=== PATIENT | male | born 1930 | race Caucasian/White ===

== ENCOUNTER 2017-01-01 07:33 | Observation (INO) | payer MEDICARE, OTHER ==
[~2017-01-01 07:33] MED LIST: Ciprofloxacin in D5W 400 MG in Premix Bag 1 BAG IV ONE
[2017-01-01] MEDS: Lactated Ringers 1,000 ML IV SCH (08:05)
[2017-01-01] MEDS ORDERED: Propofol 200 MG/20 ML SDV ONE ×2 (08:41→09:20)
[2017-01-01] MEDS ORDERED: Lidocaine 2% 5 ML SDV ONE ×2 (08:41→09:20)
[2017-01-01] MEDS ORDERED: Midazolam 1 MG/ML 2 ML SDV ONE (09:20)
[2017-01-01] MEDS ORDERED: fentaNYL 100 MCG/2 ML SDV ONE (09:20)
[2017-01-01] MEDS ORDERED: Ondansetron 4 MG/2 ML SDV ONE (09:24)
--- NOTE | 2017-01-01 09:42 | PCM.PREANE ---
Preanesthetic Assessment - Procedure Proposed Procedure: TURBT - Anesthesia/Transfusion/Family Hx Anesthesia History: Prior Anesthesia Without Reaction Family History of Anesthesia Reaction: No Transfusion History: No Prior Transfusion(s) Intubation History: Unknown - Review of Systems General: No Symptoms Pulmonary: No Symptoms Cardiovascular: Other (HTN, hypercholesterolemia, Pacemaker for slow heart rate) Gastrointestinal: Other (GERD) Neurological: Other (hearing loss) Other: Reports: Thyroid Problems (hypothyroid - treated) - Physical Assessment NPO Status Date: 12/31/16 NPO Status Time: 21:00 O2 Sat by Pulse Oximetry: 96 Respiratory Rate: 16 Vital Signs: Last Vital Signs Temp 97.2 F 01/01/17 08:34 Pulse 92 01/01/17 08:34 Resp 16 01/01/17 08:34 BP 111/50 L 01/01/17 08:34 Pulse Ox 96 01/01/17 08:34 Height: 5 ft 10 in Weight: 178 lb ASA Class: 3 Mental Status: Alert & Oriented x3 Airway Class: Mallampati = 3 Dentition: Reports: Missing Tooth/Teeth Thyro-Mental Finger Breadths: 3 Mouth Opening Finger Breadths: 3 (small mouth) ROM/Head Extension: Limited/Partial Lungs: Clear to Auscultation, Normal Respiratory Effort Cardiovascular: Regular Rate, Regular Rhythm, No Murmurs - Allergies Allergies/Adverse Reactions: Allergies Allergy/AdvReac Type Severity Reaction Status Date / Time cephalexin [From Keflex] Allergy Shortness Verified 12/28/16 13:18 of Breath - Blood Blood Available: No Product(s) Available: None - Anesthesia Plan Pre-Op Medication Ordered: None - Acknowledgements Anesthesia Type Planned: General Anesthesia (OET) Pt an Appropriate Candidate for the Planned Anesthesia: Yes Alternatives and Risks of Anesthesia Discussed w Pt/Guardian: Yes Pt/Guardian Understands and Agrees with Anesthesia Plan: Yes PreAnesthesia Questionnaire HEENT History: Reports: Hard of Hearing Other HEENT History: wears glasses, has hearing aides but doesn't wear them Cardiovascular History: Reports: High Cholesterol, Hypertension, Other (See Below) Other Cardiovascular History: hx of bradycardia Gastrointestinal History: Reports: GERD Other Genitourinary History: current bladder tumor Musculoskeletal History: Reports: Arthritis, Gout Endocrine/Metabolic History: Reports: Hypothyroidism Oncologic (Cancer) History: Reports: Bladder, Other (See Below) Other Oncologic History: skin cancer on face Other Dermatologic History: skin cancer removed from face - Past Surgical History Cardiovascular Surgical History: Reports: Pacer Other Cardiovascular Surgeries/Procedures: Pacemaker placed in September 2016 GI Surgical History: Reports: None Male Surgical History: Reports: None Musculoskeletal Surgical History: Reports: Knee Replacement Other Musculoskeletal Surgeries/Procedures:: right TKA Dermatological Surgical History: Reports: Skin Biopsy - SUBSTANCE USE Smoking Status *Q: Never Smoker Second Hand Smoke Exposure: No Recreational Drug Use History: No - HOME MEDS Home Medications: Home Meds Doxazosin Mesylate [Cardura] 8 mg PO BID 05/24/14 [History] Levothyroxine [Synthroid] 50 mg PO DAILY 05/24/14 [History] Simvastatin [Zocor] 20 mg PO BEDTIME 05/24/14 [History] Omeprazole 20 mg PO ACBRK #30 cap.sr 05/27/14 [Rx] Aspirin [Adult Low Dose Aspirin EC] 81 mg PO DAILY 12/28/16 [History] Gabapentin [Neurontin] 400 mg PO BID 12/28/16 [History] - CURRENT (IN HOUSE) MEDS Current Meds: Current Medications Lactated Ringer's (Ringers, Lactated) 1,000 mls @ 100 mls/hr IV ASDIRECTED DANA Last Admin: 01/01/17 08:05 Dose: 100 mls/hr Discontinued Medications Fentanyl (Sublimaze) Confirm Administered Dose 200 mcg .ROUTE .STK-MED ONE Stop: 01/01/17 09:21 Ciprofloxacin/Dextrose 400 mg/ (Premix) 200 mls @ 200 mls/hr IV ONCALL ONE Stop: 01/01/17 07:59 Last Admin: 01/01/17 09:10 Dose: 200 mls/hr Lidocaine (Xylocaine-Mpf 2%) Confirm Administered Dose 5 ml .ROUTE .STK-MED ONE Stop: 01/01/17 08:42 Lidocaine (Xylocaine-Mpf 2%) Confirm Administered Dose 5 ml .ROUTE .STK-MED ONE Stop: 01/01/17 09:21 Midazolam HCl (Versed 1 Mg/Ml) Confirm Administered Dose 2 mg .ROUTE .STK-MED ONE Stop: 01/01/17 09:21 Ondansetron HCl (Zofran) Confirm Administered Dose 4 mg .ROUTE .STK-MED ONE Stop: 01/01/17 09:25 Propofol (Diprivan 20 Ml) Confirm Administered Dose 200 mg .ROUTE .STK-MED ONE Stop: 01/01/17 08:42 Propofol (Diprivan 20 Ml) Confirm Administered Dose 200 mg .ROUTE .STK-MED ONE Stop: 01/01/17 09:21
[2017-01-01] MEDS ORDERED: ePHEDrine 50 MG/ML SDV ONE (10:25)
[2017-01-01] MEDS ORDERED: fentaNYL 100 MCG/2 ML SDV IVPUSH PRN (10:36)
[2017-01-01] MEDS ORDERED: Neostigmine Methylsulfate 1 MG/ML 5 ML Syringe ONE (10:58)
[2017-01-01 11:10] LABS: CHLORIDE,CL 108 mmol/L (98-110); SODIUM,NA 138 mmol/L (136-146)
[2017-01-01] MEDS ORDERED: Ciprofloxacin in D5W 400 MG in Premix Bag 1 BAG IV SCH ×2 (11:45)
[2017-01-01] MEDS ORDERED: Lactated Ringers 1,000 ML IV SCH (11:45)
--- NOTE | 2017-01-01 13:03 | PCM.POSTAN ---
POST ANESTHESIA ASSESSMENT - MENTAL STATUS Mental Status: Alert (Held in PAR because of bed designation problem.), Oriented - RESPIRATORY Respiratory Status: Respiratory Rate WNL, Airway Patent, O2 Saturation Stable - CARDIOVASCULAR CV Status: Pulse Rate WNL, Blood Pressure Stable - GASTROINTESTINAL GI Status: No Symptoms - POST OP HYDRATION Hydration Status: Adequate & Stable
[2017-01-01] MEDS: Omeprazole 20 MG Cap.CR PO SCH ×2 (13:54→21:06)
--- NOTE | 2017-01-01 14:31 | OR ---
SURGEON: Preeti Davies M.D. DATE OF PROCEDURE: 01/01/2017 PREOPERATIVE DIAGNOSIS: Large bladder tumor. POSTOPERATIVE DIAGNOSIS: Large bladder tumor. OPERATION: TURBT. DESCRIPTION OF OPERATION: The patient was given general anesthesia, placed in dorsal lithotomy position, prepped and draped in sterile drapes. The resectoscope was introduced into the bladder and the tumor was resected in its entirety. Deeper sections were obtained as part of the specimen. The ureteral orifice was resected and it appears patent enough, so I elected without stenting. Blood loss was under 50 mL. An 18-H[place] Kong[place] Salas catheter at the end was placed in the bladder, looked up to continuous irrigation. The patient tolerated the procedure well and was moved to recovery room in good condition. BOOKER / DANI /[id number]
[2017-01-01] MEDS: Acetaminophen 325 MG Tab PO PRN (17:53)
[2017-01-01] MEDS: Ciprofloxacin in D5W 400 MG in Premix Bag 1 BAG IV SCH ×2 (18:03)
[2017-01-01] MEDS: Gabapentin 300 MG Cap PO SCH (21:06)
[2017-01-02] MEDS: Lactated Ringers 1,000 ML IV SCH (00:30)
[2017-01-02] MEDS: Acetaminophen 325 MG Tab PO PRN ×2 (00:31→04:35)
[2017-01-02 05:13] LABS: CHLORIDE,CL 109 mmol/L (98-110); SODIUM,NA 143 mmol/L (136-146)
[2017-01-02] MEDS: Ciprofloxacin in D5W 400 MG in Premix Bag 1 BAG IV SCH ×2 (06:30)
[2017-01-02] MEDS: Acetaminophen/HYDROcodone 325-5 MG Tab PO PRN (06:51)
[2017-01-02] MEDS: Gabapentin 300 MG Cap PO SCH ×2 (08:39→20:32)
--- NOTE | 2017-01-02 09:17 | PCM48HPAN ---
Post Anesthesia Note - EVALUATION WITHIN 48HRS OF ANESTHETIC Vital Signs in Normal Range: Yes Patient Participated in Evaluation: Yes Respiratory Function Stable: Yes Airway Patent: Yes Cardiovascular Function Stable: Yes Hydration Status Stable: Yes Pain Control Satisfactory: Yes Nausea and Vomiting Control Satisfactory: Yes Mental Status Recovered: Yes
[2017-01-02] MEDS: Omeprazole 20 MG Cap.CR PO SCH (20:32)
[2017-01-03] MEDS: Acetaminophen/HYDROcodone 325-5 MG Tab PO PRN ×4 (01:50→15:50)
[2017-01-03] MEDS: Gabapentin 300 MG Cap PO SCH ×2 (09:38→20:43)
[2017-01-03] MEDS ORDERED: Bisacodyl 10 MG Supp RECTAL ONE (10:12)
[2017-01-03] MEDS: Acetaminophen 325 MG Tab PO PRN (17:57)
[2017-01-03] MEDS ORDERED: HYDROmorphone 1 MG/ML Syringe IVPUSH ONE (18:17)
[2017-01-03] MEDS ORDERED: HYDROmorphone 1 MG/ML Syringe IVPUSH PRN (18:18)
[2017-01-03] MEDS: Lactated Ringers 1,000 ML IV SCH (18:40)
[2017-01-03] MEDS ORDERED: Ondansetron 4 MG/2 ML SDV IVPUSH PRN (19:28)
[2017-01-03] MEDS: Omeprazole 20 MG Cap.CR PO SCH (20:43)
[2017-01-04] MEDS: Lactated Ringers 1,000 ML IV SCH ×2 (08:04→21:23)
[2017-01-04] MEDS: Gabapentin 300 MG Cap PO SCH ×2 (08:05→20:08)
[2017-01-04] MEDS ORDERED: Furosemide 20 MG/2 ML VIAL IVPUSH ONE (11:26)
[2017-01-04] MEDS: Omeprazole 20 MG Cap.CR PO SCH (20:08)
[2017-01-05] MEDS: Gabapentin 300 MG Cap PO SCH (08:27)
[2017-01-05 08:59] VITALS: BP 176/96
--- NOTE | 2017-01-05 13:20 | DISCH ---
DATE OF DISCHARGE: 01/05/2017 PRIMARY CARE PHYSICIAN: [facility] COURSE: He is 86 years old. He was seen in the office because of gross hematuria and was found to have a large bladder tumor. He had TURBT done on 01/01/2017. Postoperatively, he remained stable. The tumor was large and he had a TUR drip running for two out of the four days he was here. The last two days, he was able to void. The urine was slightly bloody. Hemoglobin was stable at 12 on 01/04. 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 The resection included the left ureteral orifice. He however remained without left flank pain. He was discharged on 01/05/2017 on Bactrim regular twice a day for the next week. He is to come back and see me in three months for cystoscopy for bladder tumor recheck. BOOKER LOUISE /[id number]
--- NOTE | 2017-06-18 13:54 | DISCH ---
DATE OF DISCHARGE: 01/05/2017 PRIMARY CARE PHYSICIAN: Nicolas Roman Mr. Matias is an 86-year-old he was in and had a large bladder tumor that was resected on 01/01/2017. Postoperatively, he did well and was discharged in stable condition on 01/05/2017. BOOKER LOUISE /[id number]
--- NOTE | 2017-06-18 14:00 | PN ---
DATE SEEN: 01/02/2017 First day postop, he is doing well. He is stable. The urine is clear. BOOKER / DANI /[id number]
--- NOTE | 2017-06-18 14:02 | PN ---
DATE SEEN: 01/03/2017 Stable. Vital signs are normal. He is doing well. MTDD
--- NOTE | 2017-06-18 14:06 | PN ---
DATE SEEN: 01/04/2017 Stable. Vital signs are normal. He is doing well. BOOKER LOUISE /[id number]
--- NOTE | 2017-06-18 14:26 | PN ---
On 01/05/2017, stable, doing well. Vital signs are normal. BOOKER / DANI /[id number]
== END 2017-01-05 11:30 | disposition home or self-care (01) ==
LOC: MW.MS 07:33 → INTOOBSV 07:33
PROVIDERS: ADMIT Urology; ATTEND Urology
DX: C67.9 Malignant neoplasm of bladder, unspecified (principal); I10 Essential (primary) hypertension; E78.00 Pure hypercholesterolemia, unspecified; K21.9 Gastro-esophageal reflux disease without esophagitis; E03.9 Hypothyroidism, unspecified; Z88.1 Allergy status to other antibiotic agents; Z79.82 Long term (current) use of aspirin; Z79.899 Other long term (current) drug therapy; Z95.0 Presence of cardiac pacemaker; Z96.659 Presence of unspecified artificial knee joint; Z98.890 Other specified postprocedural states
CPT/HCPCS: 36415; 52234; 80048; 85014; 85018; 85025; A9270; J0744; J1170; J2405; J3010; J7120; 00912; 88305; 88331; 88332; 96374; 96375; 96376; G0378; J2250; J2704

== ENCOUNTER 2017-05-21 08:16 | Day surgery (SDC) | payer MEDICARE, OTHER ==
[~2017-05-21 08:16] MED LIST changes: -Ciprofloxacin in D5W 400 MG in Premix Bag 1 BAG IV ONE; +Ciprofloxacin in D5W 400 MG in Premix Bag 1 BAG IV SCH; +Lactated Ringers 1,000 ML IV SCH; +Sodium Chloride 0.9% 10 ML Syringe FLUSH PRN; +Sodium Chloride 0.9% 2.5 ML Syringe FLUSH PRN
[2017-05-21 09:59] LABS: CHLORIDE,CL 108 mmol/L (98-110); SODIUM,NA 140 mmol/L (136-146)
--- NOTE | 2017-05-21 10:18 | PCM.PREANE ---
Preanesthetic Assessment - Anesthesia/Transfusion/Family Hx Anesthesia History: Prior Anesthesia Without Reaction Transfusion History: No Prior Transfusion(s) Intubation History: Unknown - Review of Systems General: No Symptoms Pulmonary: No Symptoms Cardiovascular: No Symptoms Gastrointestinal: No Symptoms Neurological: No Symptoms Other: Reports: None - Physical Assessment O2 Sat by Pulse Oximetry: 100 Respiratory Rate: 16 Vital Signs: Last Vital Signs Temp 96.8 F 05/21/17 08:38 Pulse 93 05/21/17 08:38 Resp 16 05/21/17 08:38 BP 161/95 H 05/21/17 08:38 Pulse Ox 100 05/21/17 08:38 Height: 5 ft 10 in Weight: 81.647 kg ASA Class: 3 Mental Status: Alert & Oriented x3 Airway Class: Mallampati = 2 Dentition: Reports: Normal Dentition Thyro-Mental Finger Breadths: 3 Mouth Opening Finger Breadths: 3 ROM/Head Extension: Full Lungs: Clear to Auscultation, Normal Respiratory Effort Cardiovascular: Regular Rate, Regular Rhythm - Lab Values: Laboratory Last Values Hgb 12.9 g/dL (13.0-17.0) L 05/21/17 09:22 Hct 38.6 % (38.0-50.0) 05/21/17 09:22 Sodium 140 mmol/L (136-146) 05/21/17 09:43 Potassium 4.0 mmol/L (3.5-5.1) 05/21/17 09:43 Chloride 108 mmol/L (98-110) 05/21/17 09:43 Carbon Dioxide 25 mmol/L (21-31) 05/21/17 09:43 BUN 22 mg/dL (6.0-23.0) 05/21/17 09:43 Creatinine 1.1 mg/dL (0.6-1.5) 05/21/17 09:43 Est Cr Clr Drug Dosing 48.85 mL/min 05/21/17 09:43 Estimated GFR (MDRD) > 60.0 ml/min 05/21/17 09:43 Glucose 108 mg/dL (60-110) 05/21/17 09:43 Calcium 9.3 mg/dL (8.8-10.8) 05/21/17 09:43 - Allergies Allergies/Adverse Reactions: Allergies Allergy/AdvReac Type Severity Reaction Status Date / Time cephalexin [From Keflex] Allergy Shortness Verified 05/17/17 07:57 of Breath - Acknowledgements Anesthesia Type Planned: General Anesthesia Pt an Appropriate Candidate for the Planned Anesthesia: Yes Alternatives and Risks of Anesthesia Discussed w Pt/Guardian: Yes Pt/Guardian Understands and Agrees with Anesthesia Plan: Yes PreAnesthesia Questionnaire HEENT History: Reports: Hard of Hearing Other HEENT History: wears glasses, has hearing aides, upper partial Cardiovascular History: Reports: High Cholesterol, Hypertension, Pacemaker, Other (See Below) Other Cardiovascular History: hx of bradycardia Gastrointestinal History: Reports: GERD Genitourinary History: Reports: BPH, Prostate Disorder Other Genitourinary History: current bladder tumor Musculoskeletal History: Reports: Arthritis, Gout Endocrine/Metabolic History: Reports: Hypothyroidism Oncologic (Cancer) History: Reports: Basal Cell Carcinoma, Bladder, Prostate Other Dermatologic History: skin cancer removed from face - Past Surgical History Head Surgeries/Procedures: Reports: None HEENT Surgical History: Reports: Cataract Surgery Cardiovascular Surgical History: Reports: Other (See Below) Other Cardiovascular Surgeries/Procedures: Pacemaker placed in September 2016 GI Surgical History: Reports: Hernia, Inguinal Other Female Surgeries/Procedures: bladder cancer, prostate cancer Male Surgical History: Reports: TURBT-Transurethral Resection of Bladder Tumor Musculoskeletal Surgical History: Reports: Knee Replacement Other Musculoskeletal Surgeries/Procedures:: right TKA Dermatological Surgical History: Reports: Skin Biopsy - SUBSTANCE USE Smoking Status *Q: Never Smoker Second Hand Smoke Exposure: No Recreational Drug Use History: No - HOME MEDS Home Medications: Home Meds Doxazosin Mesylate [Cardura] 8 mg PO BID 05/24/14 [History] Levothyroxine [Synthroid] 50 mg PO DAILY 05/24/14 [History] Simvastatin [Zocor] 20 mg PO BEDTIME 05/24/14 [History] Omeprazole 20 mg PO ACBRK #30 cap.sr 05/27/14 [Rx] Gabapentin [Neurontin] 400 mg PO BID 12/28/16 [History] - CURRENT (IN HOUSE) MEDS Current Meds: Current Medications Ciprofloxacin/Dextrose 400 mg/ (Premix) 200 mls @ 200 mls/hr IV ONCALL DANA Lactated Ringer's (Ringers, Lactated) 1,000 mls @ 100 mls/hr IV ASDIRECTED DANA Last Admin: 02/06/18 08:49 Dose: 100 mls/hr Sodium Chloride (Saline Flush) 10 ml FLUSH ASDIRECTED PRN PRN Reason: Keep Vein Open Sodium Chloride (Saline Flush) 2.5 ml FLUSH ASDIRECTED PRN PRN Reason: Keep Vein Open
[2017-05-21] MEDS ORDERED: Propofol 200 MG/20 ML SDV ONE (11:12)
[2017-05-21] MEDS ORDERED: Midazolam 1 MG/ML 2 ML SDV ONE (11:12)
[2017-05-21] MEDS ORDERED: Lidocaine 2% 5 ML SDV ONE (11:12)
[2017-05-21] MEDS ORDERED: fentaNYL 250 MCG/5 ML SDV ONE (11:13)
[2017-05-21] MEDS ORDERED: Ondansetron 4 MG/2 ML SDV ONE (11:13)
[2017-05-21] MEDS ORDERED: Succinylcholine/Normal Saline 200 MG/10 ML Syringe ONE (11:18)
[2017-05-21] MEDS ORDERED: ePHEDrine 50 MG/ML SDV ONE (11:50)
[2017-05-21] MEDS ORDERED: fentaNYL 100 MCG/2 ML SDV IVPUSH PRN (12:30)
--- NOTE | 2017-05-21 13:05 | PCM.POSTAN ---
POST ANESTHESIA ASSESSMENT - MENTAL STATUS Mental Status: Alert, Oriented - RESPIRATORY Respiratory Status: Respiratory Rate WNL, Airway Patent, O2 Saturation Stable - CARDIOVASCULAR CV Status: Pulse Rate WNL, Blood Pressure Stable - GASTROINTESTINAL GI Status: No Symptoms - POST OP HYDRATION Hydration Status: Adequate & Stable
[2017-05-21 14:35] VITALS: BP 134/79
--- NOTE | 2017-05-21 15:32 | OR ---
SURGEON: Preeti Davies M.D. DATE OF PROCEDURE: 05/21/2017 PREOPERATIVE DIAGNOSIS: Multiple papillary bladder tumors, total volume is medium. POSTOPERATIVE DIAGNOSIS: Multiple papillary bladder tumors, total volume is medium. OPERATION: TURBT. DESCRIPTION OF PROCEDURE: The patient was given general anesthesia, placed in dorsal lithotomy position, prepped and draped in sterile drapes. The resectoscope was introduced in the bladder. The largest tumor that was right behind the neck of the bladder between the 2 and 5 o'clock positions was resected in its entirety. The rest of the papillary tumors were fulgurated. With that done, the procedure was terminated. The estimated blood loss was minimal under 5 mL. The patient tolerated the procedure well and was moved to recovery room in good condition. BOOKER / DANI /[id number]
== END 2017-05-21 14:33 | disposition home or self-care (01) ==
LOC: MW.SDS 08:16
PROVIDERS: ATTEND Urology
DX: C67.9 Malignant neoplasm of bladder, unspecified (principal); E78.00 Pure hypercholesterolemia, unspecified; I10 Essential (primary) hypertension; Z95.0 Presence of cardiac pacemaker; K21.9 Gastro-esophageal reflux disease without esophagitis; M19.90 Unspecified osteoarthritis, unspecified site; M10.9 Gout, unspecified; E03.9 Hypothyroidism, unspecified; Z85.828 Personal history of other malignant neoplasm of skin; Z85.46 Personal history of malignant neoplasm of prostate; Z87.891 Personal history of nicotine dependence; Z88.1 Allergy status to other antibiotic agents; Z79.899 Other long term (current) drug therapy; Z98.49 Cataract extraction status, unspecified eye; Z96.651 Presence of right artificial knee joint; Z98.890 Other specified postprocedural states
CPT/HCPCS: 36415; 52235; 80048; 85014; 85018; 85049; J0744; J2250; J2405; J3010; J7120; 00912; 88305; J2704

== ENCOUNTER 2018-07-22 11:17 | Day surgery (SDC) | payer MEDICARE, OTHER ==
[~2018-07-22 11:17] MED LIST changes: +Sodium Chloride 0.9% 10 ML SDV IV PRN
--- NOTE | 2018-07-22 12:33 | PCM.PREANE ---
Preanesthetic Assessment - Anesthesia/Transfusion/Family Hx Anesthesia History: Prior Anesthesia Without Reaction Family History of Anesthesia Reaction: No Transfusion History: No Prior Transfusion(s) Intubation History: Unknown - Review of Systems General: No Symptoms Pulmonary: No Symptoms Cardiovascular: No Symptoms Gastrointestinal: No Symptoms Neurological: No Symptoms Other: Reports: None - Physical Assessment NPO Status Date: 07/21/18 O2 Sat by Pulse Oximetry: 98 Respiratory Rate: 20 Vital Signs: Last Vital Signs Temp 97.2 F 07/22/18 11:45 Pulse 76 07/22/18 11:45 Resp 20 07/22/18 11:45 BP 126/81 07/22/18 11:45 Pulse Ox 98 07/22/18 11:45 Height: 5 ft 9 in Weight: 87.543 kg ASA Class: 3 Mental Status: Alert & Oriented x3 Airway Class: Mallampati = 2 Dentition: Reports: Partial (upper), Missing Tooth/Teeth ROM/Head Extension: Full Lungs: Clear to Auscultation, Normal Respiratory Effort Cardiovascular: Regular Rate, Regular Rhythm - Allergies Allergies/Adverse Reactions: Allergies Allergy/AdvReac Type Severity Reaction Status Date / Time cephalexin [From Keflex] Allergy Shortness Verified 07/21/18 09:48 of Breath - Blood Blood Available: No - Anesthesia Plan Pre-Op Medication Ordered: None - Acknowledgements Anesthesia Type Planned: General Anesthesia Pt an Appropriate Candidate for the Planned Anesthesia: Yes Alternatives and Risks of Anesthesia Discussed w Pt/Guardian: Yes Pt/Guardian Understands and Agrees with Anesthesia Plan: Yes Additional Comments: PMH: AGUA CALIENTE, poor memmory, pacemaker x 2 yr, unknown indiction, last checked 6 weeks ago, thyroid replacement, on gabipentin for chronic L shoulder/arm pain ( ? radiculopathy) PLAN: [email or web address] PreAnesthesia Questionnaire HEENT History: Reports: Hard of Hearing, Other (See Below) Other HEENT History: wears glasses, had hearing aides but lost them, has upper partial removable denture Cardiovascular History: Reports: Arrhythmia, High Cholesterol, Hypertension, Pacemaker Other Cardiovascular History: pacemaker placed in 2017 Gastrointestinal History: Reports: GERD Genitourinary History: Reports: Other (See Below) Other Genitourinary History: hx of prostate and bladder cancer Musculoskeletal History: Reports: Osteoarthritis Endocrine/Metabolic History: Reports: Hypothyroidism Oncologic (Cancer) History: Reports: Bladder, Prostate Other Dermatologic History: skin cancer removed from face - Past Surgical History GI Surgical History: Reports: Hernia, Inguinal Male Surgical History: Reports: TURBT-Transurethral Resection of Bladder Tumor Musculoskeletal Surgical History: Reports: Knee Replacement Oncologic Surgical History: Reports: Other (See Below) Other Oncologic Surgeries/Procedures: TURBT - SUBSTANCE USE Smoking Status *Q: Never Smoker Recreational Drug Use History: No - HOME MEDS Home Medications: Home Meds Doxazosin Mesylate [Cardura] 8 mg PO BID 05/24/14 [History] Levothyroxine [Synthroid] 75 mg PO DAILY 05/24/14 [History] Simvastatin [Zocor] 20 mg PO BEDTIME 05/24/14 [History] Gabapentin [Neurontin] 400 mg PO BID 12/28/16 [History] Metoprolol Succinate 50 mg PO BEDTIME 07/21/18 [History] Omeprazole 20 mg PO BEDTIME 07/21/18 [History] - CURRENT (IN HOUSE) MEDS Current Meds: Current Medications Ciprofloxacin/Dextrose 400 mg/ (Premix) 200 mls @ 200 mls/hr IV ONCALL DANA Lactated Ringer's (Ringers, Lactated) 1,000 mls @ 100 mls/hr IV ASDIRECTED DANA Last Admin: 07/22/18 11:45 Dose: 100 mls/hr Sodium Chloride (Saline Flush) 10 ml FLUSH ASDIRECTED PRN PRN Reason: Keep Vein Open Sodium Chloride (Saline Flush) 2.5 ml FLUSH ASDIRECTED PRN PRN Reason: Keep Vein Open Sodium Chloride (Normal Saline) 10 ml IV ASDIRECTED PRN PRN Reason: IV Use
[2018-07-22] MEDS ORDERED: Ondansetron 4 MG/2 ML SDV ONE (13:23)
[2018-07-22] MEDS ORDERED: Propofol 200 MG/20 ML SDV ONE (13:24)
[2018-07-22] MEDS ORDERED: fentaNYL 100 MCG/2 ML SDV ONE (13:24)
[2018-07-22 15:18] VITALS: BP 109/63
--- NOTE | 2018-07-22 15:38 | PCM48HPAN ---
Post Anesthesia Note - EVALUATION WITHIN 48HRS OF ANESTHETIC Vital Signs in Normal Range: Yes Patient Participated in Evaluation: Yes Respiratory Function Stable: Yes Airway Patent: Yes Cardiovascular Function Stable: Yes Hydration Status Stable: Yes Pain Control Satisfactory: Yes Nausea and Vomiting Control Satisfactory: Yes Mental Status Recovered: Yes Resp Rate: 16
--- NOTE | 2018-07-22 17:05 | OR ---
SURGEON: Preeti Davies M.D. DATE OF PROCEDURE: 07/22/2018 PREOPERATIVE DIAGNOSIS: Multiple papillary bladder tumors, left lateral wall and bladder neck. Total volume 2.5 mL. POSTOPERATIVE DIAGNOSIS: Multiple papillary bladder tumors, left lateral wall and bladder neck. Total volume 2.5 mL. OPERATION: TURBT. DESCRIPTION OF PROCEDURE: The patient was given general anesthesia. He was placed in dorsal lithotomy position, prepped and draped in sterile drapes. A 26-Peruvian cystoscope was introduced into the bladder without difficulty. The tumors were all completely resected. The bases were fulgurated. The specimen is submitted. No significant bleeding is noticed. A 16-[place]uvian Salas catheter was left in and connected to a leg bag. The patient tolerated the procedure well and was moved to recovery room in good condition. I will see him in 4 months for cystoscopy in the office. BOOKER / DANI /[id number]
== END 2018-07-22 14:46 | disposition home or self-care (01) ==
LOC: MW.SDS 11:17
PROVIDERS: ATTEND Urology
DX: C67.2 Malignant neoplasm of lateral wall of bladder (principal); C67.5 Malignant neoplasm of bladder neck; C61 Malignant neoplasm of prostate; I10 Essential (primary) hypertension; E03.9 Hypothyroidism, unspecified; E78.00 Pure hypercholesterolemia, unspecified; Z88.1 Allergy status to other antibiotic agents; Z95.0 Presence of cardiac pacemaker; Z87.891 Personal history of nicotine dependence; Z79.899 Other long term (current) drug therapy
CPT/HCPCS: 52224; J0744; J2405; J2704; J3010; J7120; 88307